=== PATIENT | female | born 1960 | race Caucasian/White ===

== ENCOUNTER 2023-02-21 17:32 | Emergency (ER) | payer MEDICAID, SELFPAY ==
[2023-02-21 17:37] VITALS: BP 181/91; PULSE 82; RESP 18; TEMP 36.6; O2SAT 98; BMI 49.7
--- NOTE | 2023-02-21 18:09 | CRLHL7_ITS ---
For Patients: As a result of the Century Cures Act, medical imaging exams and procedure reports are released immediately into your electronic medical record. You may view this report before your referring provider. If you have questions, please contact your health care provider. INDICATION: BILATERAL LE SWELLING, CONCERN FOR DVT TECHNIQUE: Ultrasound venous duplex lower extremity bilateral. Compression venous exam was performed using sosa scale, color Doppler, and spectral Doppler imaging. COMPARISON: None. FINDINGS: Sonographic imaging demonstrates the common femoral, deep femoral, superficial femoral, popliteal, posterior tibial and greater saphenous veins to be fully compressible with normal color Doppler blood flow in both lower extremities. IMPRESSION: Normal bilateral lower extremity venous ultrasound, no sign of deep venous thrombosis. Dictated by: Ronald Pardo MD @ 02/21/2023 19:07:10 (Electronically Signed)
--- NOTE | 2023-02-21 18:13 | ED_ITS ---
HPI - General Adult General Time Seen by Provider: 18:13 Date Seen: 02/21/23 Chief complaint: Extremity Pain/Injury, Lower Stated complaint: Possible blood clot R leg Time Seen by Provider: 02/21/23 17:40 Source: patient Mode of arrival: ambulatory Limitations: no limitations History of Present Illness HPI narrative: patient is a 62-year-old female presented respect for better extremity swelling. She states her only history is hypertension in the herniated disc in her back. She states she has noticed increased swelling and pain to her legs for the past week so she spoke to her doctor recommended she goes to emergency department. She went to urgent care. While there they did a troponin which was within normal limits and did the D-dimer for concern blood clots. D-dimer is elevated. Due to this she was sent to emergency department for bilateral lower extremity ultrasound. patient denies chest pain, shortness breath, weakness, numbness, headache, vision changes, diarrhea, constipation. This nose worse pain in her right leg but most of the pain comes were back down to above her right knee. Minimal pain in the Lower legs. she denies a history of heart failure. Does states he has been having issues with leg swelling but the swelling usually goes away when she Keeps her legs elevated. She was concerned because these were not getting better. Related Data Home Medications Medication Instructions Recorded Confirmed amlodipine 2.5 mg tablet 2.5 mg PO DAILY 02/21/23 02/21/23 cyclobenzaprine 5 mg tablet 5 mg PO 3XD PRN 02/21/23 02/21/23 fluticasone propionate 50 1 spray intranasal BID 02/21/23 02/21/23 mcg/actuation nasal spray,suspension hydrochlorothiazide 25 mg tablet 25 mg PO DAILY 02/21/23 02/21/23 losartan 100 mg tablet 100 mg PO DAILY 02/21/23 02/21/23 venlafaxine 37.5 mg 37.5 mg PO BID 02/21/23 02/21/23 capsule,extended release 24 hr Allergies Allergy/AdvReac Type Severity Reaction Status Date / Time Unable to Assess Allergy Verified 02/21/23 17:41 Review of Systems Status of ROS: Reports: 10 or more systems reviewed and unremarkable except as noted in History and below [facility] Medical History (Updated 02/21/23 @ 20:37 by Keagan P Eder, DO) Leg edema ?R60.0 - Localized edema (ICD-10) Social History Smoking Status: Never smoker How often do you have a drink containing alcohol: never AUDIT-C Alcohol total score: 0 Non-prescribed substance use: denies use Exam Narrative: Exam Narrative: Const: Well-nourished, Well-developed, in mild distress Eyes: PERRL, no conjunctival injection, and symmetrical lids ENMT: Atraumatic external nose and ears. Moist mucous membranes. Neck: Symmetric, trachea midline, No thyromegaly. CVS: RRR, No murmurs or gallops. Peripheral pulses 2+ and equal in all extremities RESP: Unlabored respiratory effort. Clear to auscultation bilaterally. GI: Nontender/Nondistended, No rebound or guarding. MSK:Extremities w/o deformity, Normal Active ROM. +2 bilateral lower extremity edema up to the knee Skin: Warm, Dry. No rashes or lesions. Neuro: Normal Muscle tone, No focal neurological deficits. Psych: Awake, Alert, & Oriented x3. Appropriate mood and affect. Const: Vital Signs, click to edit/add: Vital Signs - 24 hr 02/21/23 17:37 Temperature 97.8 F Pulse Rate [Pulse Oximeter] 82 Respiratory Rate 18 Blood Pressure [Ri ght Upper Arm] 181/91 H Pulse Oximetry 98 Oxygen Delivery Me thod Room Air Course Vital Signs Vital signs: Initial Vital Signs Temperature 97.8 F 02/21/23 17:37 Temperature Source Temporal Artery Scan 02/21/23 17:37 Pulse Rate 82 02/21/23 17:37 Pulse Rhythm Regular 02/21/23 17:37 Respiratory Rate 18 02/21/23 17:37 Blood Pressure 181/91 H 02/21/23 17:37 Blood Pressure Mean 121 H 02/21/23 17:37 Blood Pressure Position Sitting 02/21/23 17:37 Pulse Oximetry 98 02/21/23 17:37 Oxygen Delivery Method Room Air 02/21/23 17:37 Vital Signs Temperature 97.8 F 02/21/23 17:37 Pulse Rate 82 02/21/23 17:37 Respiratory Rate 18 02/21/23 17:37 Blood Pressure 181/91 H 02/21/23 17:37 Pulse Oximetry 98 02/21/23 17:37 Oxygen Delivery Method Room Air 02/21/23 17:37 Temperature 97.8 F 02/21/23 17:37 Pulse Rate 82 02/21/23 17:37 Respiratory Rate 18 02/21/23 17:37 Blood Pressure 181/91 H 02/21/23 17:37 Pulse Oximetry 98 02/21/23 17:37 Oxygen Delivery Method Room Air 02/21/23 17:37 Medical Decision Making MDM Narrative Medical decision making narrative: Patient is 62 year female presenting med for for bilateral lower extremity swelling. She states this happens it is meant the but has not improved like it usually does when she keep the legs elevated it is. She is also having worsening pain and bilateral signs worse in the right leg. She went to urgent care and had elevated D-dimer and was sent here for ultrasound. Ultrasound returned showing no concerning abnormalities no signs of DVT. With her dependent edema I will order CBC, CMP, troponin, BNP. She has not have any shortness of breath and not believe a CT scan of the chest to look for PEs are necessary. Patient's lab work all returned showing no concerning abnormalities. Troponin was less than 0.01. BNP is 176. Unlikely to be related to CHF at this time. Considering the DVTs ultrasound showed no signs of DVT and her otherwise normal appearing lab work patient most likely suffering from dependent edema. I informed her to keep the legs elevated wear compression stockings. She agrees and understands this plan. She is safe for discharge. Lab Data Labs: Lab Results 02/21/23 Range/Units 19:00 WBC 7.72 (4.50-11.00) K/uL RBC 4.21 (4.00-5.20) m/uL Hgb 12.3 (12.0-16.0) gm/dL Hct 37.1 (33.0-51.0) % MCV 88 (80-100) fL MCH 29 (26-34) pg MCHC 33 (32-36) gm/dL RDW Coeff of Ksenia 13.1 (11.5-15.5) % Plt Count 271 (140-440) K/uL Neut % (Auto) 58.9 (42.0-72.0) % Lymph % (Auto) 31.6 (20-44) % [place] % (Auto) 7.0 (0.0-11.0) % Eos % (Auto) 1.8 (0.0-7.0) % Baso % (Auto) 0.6 (0.0-3.0) % Neut # (Auto) 4.54 (1.7-7.0) K/uL Lymph # (Auto) 2.44 (0.90-2.90) K/uL [place] # (Auto) 0.50 (0.00-0.90) K/UL Eos # (Auto) 0.14 (0.00-0.50) K/uL Baso # (Auto) 0.05 (0.00-0.30) K/uL Abs Immat Gran (auto) 0.01 (0.00-0.30) K/uL Imm/Tot Granulo (auto) 0.1 % Sodium 139 (135-149) mmol/L Potassium 3.3 L (3.6-5.1) mmol/L Chloride 101 (96-114) mmol/L Carbon Dioxide 28 (20-32) mmol/L BUN 19 (7-30) mg/dL Creatinine 0.8 (0.5-1.5) mg/dL Estimated Creat Clear 53.91 Estimated GFR 83 ml/min Glucose 97 (60-115) mg/dL Calcium 8.9 (8.4-10.6) mg/dL Troponin I < 0.01 L (0.01-0.04) ng/mL NT-Pro-B Natriuret Pep 176 pg/mL ECG Data Attestation: I personally reviewed and interpreted this ECG as follows: ( normal sinus rhythm The rate of 80 beats per minute, normal intervals, no ST or T-wave abnormalities) Prior ECG tracings: available for review Discharge Plan Discharge Clinical Impression: Leg edema Patient Disposition: Home, Self-Care Condition: Stable Instructions: Leg Edema (ED) Additional Instructions: Your ultrasound showed no signs of blood clots this time. Her lab work showed no concerning abnormalities. Most likely your leg swelling is from dependent edema. Keep them elevated and wear compression stockings to help with this. Return for new or worsening symptoms. Prescriptions: No Action losartan 100 mg tablet 100 mg PO DAILY venlafaxine 37.5 mg capsule,extended release 24hr 37.5 mg PO BID cyclobenzaprine 5 mg tablet 5 mg PO 3XD PRN amlodipine 2.5 mg tablet 2.5 mg PO DAILY hydrochlorothiazide 25 mg tablet 25 mg PO DAILY fluticasone propionate 50 mcg/actuation spray,suspension 1 spray intranasal BID Follow Up/Referrals: Provider,Not a Local [Primary Care Provider] - Stand Alone Forms: OBMedical Info Instructions
[2023-02-21 19:12] LABS: Basophils Absolute Auto 0.05 K/uL (0.00-0.30); Basophils Percent Auto 0.6 % (0.0-3.0); Eosinophils Absolute Auto 0.14 K/uL (0.00-0.50); Eosinophils Percent Auto 1.8 % (0.0-7.0); Hematocrit 37.1 % (33.0-51.0); Hemoglobin* 12.3 gm/dL (12.0-16.0); Immature Granulocytes Abs Auto 0.01 K/uL (0.00-0.30); Immature Granulocytes Pct Auto 0.1 %; Lymphocytes Absolute Auto 2.44 K/uL (0.90-2.90); Lymphocytes Percent Auto 31.6 % (20-44); Mean Corpuscular HGB Conc 33 gm/dL (32-36); Mean Corpuscular Hemoglobin 29 pg (26-34); Mean Corpuscular Volume 88 fL (80-100); Neutrophils Absolute Auto 4.54 K/uL (1.7-7.0); Neutrophils Percent Auto 58.9 % (42.0-72.0); Platelet Count* 271 K/uL (140-440); RDW Coefficient of Variation % 13.1 % (11.5-15.5); Red Blood Count 4.21 m/uL (4.00-5.20); White Blood Count* 7.72 K/uL (4.50-11.00)
[2023-02-21 19:19] LABS: Slide Review Reflex No
[2023-02-21 19:39] LABS: Chloride* 101 mmol/L (96-114); Potassium* 3.3 mmol/L (3.6-5.1); Sodium* 139 mmol/L (135-149)
[2023-02-21 19:41] LABS: Creatinine* 0.8 mg/dL (0.5-1.5); Est. Creatinine Clearance* 53.91; Estimated Glomerular Filt Rate 83 ml/min
[2023-02-21 19:42] LABS: Blood Urea Nitrogen* 19 mg/dL (7-30); Calcium* 8.9 mg/dL (8.4-10.6); Carbon Dioxide* 28 mmol/L (20-32); Glucose* 97 mg/dL (60-115)
[2023-02-21 19:52] LABS: NT Pro B Type NatriureticPept* 176 pg/mL
[2023-02-21 19:55] LABS: Troponin I* < 0.01 ng/mL (0.01-0.04)
--- NOTE | 2023-02-21 20:14 | ED.NURSE ---
Report given to SESAR Brito.
== END 2023-02-21 21:30 | disposition home or self-care (01) ==
PROVIDERS: Emergency Provider Student in an Organized Health Care Education/Training Program
DX: R60.9 Edema, unspecified (principal)
CPT/HCPCS: 36415; 80048; 83880; 84443; 84484; 85025; 93005; 93970; 99283; 99284; 99285